=== PATIENT | female | born 1960 | race Asian ===

== ENCOUNTER 2022-09-15 13:04 | Emergency (ER) | payer BC, OTHER ==
[~2022-09-15] VITALS: Ht 147.3 cm; Wt 67.1 kg
[2022-09-15 13:14] VITALS: BP 132/73
--- NOTE | 2022-09-15 13:14 | NUR ---
61 Y/O FEMALE BIB, C/O RIGHT EYE PAIN, NOSE PAIN WITH BLEEDING AND BRUISING TO FACE. PT UNABLE TO OPEN EYE DUE TO PAIN AND SWELLING. 04/10. PT STATES SHE FELL TODAY ONTO CONCRETE, DENIES LOC, SYNCOPE. PMH: HTN, BACK SX, ASTHMA ALLERGY: Trimethoprim
[2022-09-15] MEDS ORDERED: MORPHINE SULFATE 4 MG/ML SYR IM ONE (13:50)
[2022-09-15 14:36] LABS: BASOPHILS % (AUTO) 0.5 % (0.0-2.0); EOSINOPHILS % (AUTO) 0.1 % (0.0-4.0); HEMATOCRIT 35.7 % (36-48); LYMPHOCYTES % (AUTO) 19.7 % (20.5-51.1); MEAN CORPUSCULAR HEMOGLOBIN 31 pg (27-31); MEAN CORPUSCULAR HGB CONC 34 g/dL (33-37); MEAN CORPUSCULAR VOLUME 91.4 fL (80-94); MONOCYTES # (AUTO) 0.4 K/uL (0.8-1.0); MONOCYTES % (AUTO) 3.7 % (1.7-9.3); NEUTROPHILS # (AUTO) 7.7 K/uL (1.8-7.7); PLATELET COUNT (AUTO) 330 K/uL (140-450); RED BLOOD CELL COUNT(AUTO) 3.91 MIL/uL (4.20-5.40); RED CELL DISTRIBUTION WIDTH 12.1 % (11.6-13.7); WHITE BLOOD COUNT (AUTO) 10.1 K/uL (4.8-10.8)
[2022-09-15 14:47] LABS: ANION GAP 11.9 (8-16); CARBON DIOXIDE 28.4 mmol/L (21-32); CREATININE 0.8 mg/dL (0.6-1.3); POTASSIUM 4.3 mmol/L (3.5-5.1)
--- NOTE | 2022-09-15 14:51 | NUR ---
PT MOVED TO ER BED 04
[2022-09-15] MEDS ORDERED: MORPHINE SULFATE 4 MG/ML SYR ONE (15:23)
[2022-09-15] MEDS ORDERED: MORPHINE SULFATE 4 MG/ML SYR IVP ONE (16:20)
[2022-09-15] MEDS ORDERED: ACET-8905 PO (17:35)
[2022-09-15] MEDS ORDERED: IBUP-2213 PO (17:35)
[2022-09-15 18:14] VITALS: BP 132/73
--- NOTE | 2022-09-15 18:14 | NUR ---
Patient discharged with v/s stable. Written and verbal after care instructions given and explained. Patient alert, oriented and verbalized understanding of instructions. Ambulatory with FAMILY, steady gait. All questions addressed prior to discharge. ID band removed. Patient advised to follow up with PMD. Rx of IBUPROFEN, NORCO (SENT) given. Patient educated on indication of medication including possible reaction and side effects. Opportunity to ask questions provided and answered.
== END 2022-09-15 18:14 | disposition home or self-care (01) ==
LOC: MED 13:04
DX: S02.85XA Fracture of orbit, unspecified, initial encounter for closed fracture (principal); Z20.822 Contact with and (suspected) exposure to COVID-19; W18.30XA Fall on same level, unspecified, initial encounter; Y93.89 Activity, other specified; Y92.89 Other specified places as the place of occurrence of the external cause; Y99.8 Other external cause status
CPT/HCPCS: 36415; 70486; 80048; 85025; 87426; 96374; 96376; 99285; J2270